=== PATIENT | male | born 1990 | race Two or more races ===

== ENCOUNTER 2024-05-12 17:49 | Emergency (ER) | payer MEDICAID, OTHER ==
[~2024-05-12] VITALS: Ht 167.6 cm; Wt 76.8 kg
[2024-05-12 18:01] VITALS: PULSE 70; RESP 20; O2SAT 98
[2024-05-12] MEDS ORDERED: AZIT-43 PO (22:54)
[2024-05-12] MEDS ORDERED: PRED20TA2 PO (22:54)
[2024-05-12 22:59] VITALS: BP 108/66
== END 2024-05-12 22:59 | disposition home or self-care (01) ==
LOC: ER 17:49
DX: J20.9 Acute bronchitis, unspecified (principal); J45.909 Unspecified asthma, uncomplicated; F12.10 Cannabis abuse, uncomplicated
CPT/HCPCS: 71046

== ENCOUNTER 2024-11-22 17:58 | Emergency (ER) | payer OTHER ==
[~2024-11-22] VITALS: Ht 165.1 cm; Wt 77.1 kg
[~2024-11-22 17:58] MED LIST: AZIT-43 PO; PRED20TA2 PO
[2024-11-22 18:38] VITALS: BP 146/86; PULSE 62; RESP 18; TEMP 98; O2SAT 99
[2024-11-22] MEDS: DexAMETHasone SOD PHOS 10MG/1ML VIAL INJ IM ONE (18:57)
[2024-11-22] MEDS: KETOROLAC TROMETH 60MG/2ML VIAL IM ONE (18:57)
--- NOTE | 2024-11-22 19:10 | ED.PDOC ---
Back pain HPI HPI Comments THIS IS A 34-YEAR-OLD MALE CHIEF COMPLAINT MID TO LOW BACK PAIN SHOOTING INTO HIS BILATERAL LOWER ABDOMIN AND PELVIS. PAIN 10/10 ON PAIN SCALE. STATES THAT HIS SHARP AND SHOOTING WORSE WITH BENDING FORWARD AND AND HYPEREXTENDED HIS BACK AND STATES 5 DAYS AGO HE WAS PROXIMALLY ON THE 2ND FLOOR AROUND 12 FT HIGH HE WAS ATTEMPTING TO GRAB A BALL THAT LANDED ON ROOF HE FELL ON HIS FEET THEN ON HIS FACE. LOC, NECK PAIN, HEAD TRAUMA, HEADACHE, VOMITING, DIARRHEA, OR FEVERS. Chief Complaint: Fall Injury Time Seen by MD: 18:17 Primary Care Provider: COUGH Reviewed Notes: Nurses Notes, Medications, Allergies Allergies: Coded Allergies: No Known Drug Allergy (Verified Allergy, Unknown, 05/12/24) Home Meds Active Scripts Hydrocodone-Acetaminophen (Hydrocodone Bitartrate/AC 5-325 mg) 1 Tab Tab, 1 TAB PO TID PRN, #20 TAB Prov:DANIEL MARTINEZ 11/22/24 Prednisone (Prednisone) 20 Mg Tab, 20 MG PO BID for 5 Days, #10 TAB 0 Refills Prov:AMBER MANDUJANO 05/12/24 Azithromycin (Azithromycin) 250 Mg Tab, 250 MG PO DAILY MDD 500 for 5 Days, #6 TAB 0 Refills 2 TABLETS ORALLY ON DAY ONE, THEN 1 TABLET ORALLY DAILY FOR 4 DAYS Prov:AMBER MANDUJANO 05/12/24 Information Source: Patient Mode of Arrival: Ambulatory Past Medical History PAST MEDICAL HISTORY: Asthma Family History Family History: Unknown Social History Smoker: Non-Smoker Alcohol: Denies ETOH Use Drugs: Marijuana Lives In: Home Constitutional: denies: chills, diaphoresis, fatigue, fever, malaise, sweats, weakness, others EENTM: denies: blurred vision, double vision, ear bleeding, ear discharge, ear drainage, ear pain, ear ringing, eye pain, eye redness, hearing loss, mouth pain, mouth swelling, nasal discharge, nose bleeding, nose congestion, nose pain, photophobia, tearing, throat pain, throat swelling, voice changes, others Respiratory: denies: cough, hemoptysis, orthopnea, SOB at rest, shortness of breath, SOB with excertion, stridor, wheezing, others Cardiovascular: denies: chest pain, dizzy spells, diaphoresis, Dyspnea on exer tion, edema, irregular heart beat, left arm pain, lightheadedness, palpitations, PND, syncope, others Gastrointestinal: reports: abdominal pain; denies: abdomen distended, blood streaked bowels, constipated, diarrhea, dysphagia, difficulty swallowing, hematemesis, melena, nausea, poor appetite, poor fluid intake, rectal bleeding, rectal pain, vomiting, others Genitourinary: denies: burning, dysuria, flank pain, frequency, hematuria, incontinence, penile discharge, penile sore, pain, testicle pain, testicle swelling, urgency, others Neurological: denies: dizziness, fainting, headache, left sided numbness, left sided weakness, numbness, paresthesia, pre-existing deficit, right sided numbness, right sided weakness, seizure, speech problems, tingling, tremors, weakness, others Musculoskeletal: reports: back pain; denies: gout, joint pain, joint swelling, muscle pain, muscle stiffness, neck pain, others Integumetry: denies: bruises, change in color, change in hair/nails, dryness, laceration, lesions, lumps, rash, wounds, others Allergic/Immunocompromised: denies: Difficulty Healing, Frequent Infections, Hives, Itching, others Hematologic/Lymphatic: denies: anemia, blood clots, easy bleeding, easy b ruising, swollen glands, others Endocrine: denies: excessive hunger, excessive sweating, excessive thirst, excessive urination, flushing, intolerance to cold, intolerance to heat, unexplained weight gain, unexplained weight loss, others Psychiatric: denies: anxiety, bipolar disorder, depression, hopeless, panic disorder, schizophrenia, sleepless, suicidal, others Physical Exam General Appearance: No Apparent Distress, Normal HEENT: Normal ENT Inspection, Pharynx Normal, TMs Normal Neck: Full Range of Motion, Non-Tender Respiratory: Chest Non-Tender, Lungs Clear, No Respiratory Distress, Normal Breath Sounds Cardiovascular: No Edema, No JVD, No Murmur, No Gallop, Normal Peripheral Pulses, Regular Rate/Rhythm Breast Exam: Deferred Gastrointestinal: No Organomegaly, No Pulsatile Mass, Normal Bowel Sounds, Soft, Tenderness (BILATERAL LOWER QUADRANTS) Genitalia: Deferred Pelvic: Deferred Rectal: Deferred Extremities: Normal capillary refill, Normal inspection, Normal range of motion, Non-tender, No pedal edema Musculoskeletal : Location: Bilateral Extremity Location: Back (MODERATE TENDERNESS OVER T10 THROUGH L5 NO NOTED CREPITUS OR STEP-OFFS NEGATIVE STRAIGHT LEG RAISE NO NOTED LACERATIONS ABRASIONS OR BRUISING STRENGTH SENSORY MOTION INTACT POSITIVE PEDAL PULSES) Apperance: Normal Neurologic: Alert, pharm tech II-XII nml as Tested, No Motor Deficits, Normal Affect, Normal Mood, No Sensory Deficits Cerebellar Function: Normal Reflexes: Normal Skin: Dry, Normal Color, Warm Lymphatic: No Adenopathy Was a procedure done? Was a procedure done?: No Back Pain Differential Dx Differential Diagnosis: Bowel Obstruction, Fracture, Musculoskeletal Pain X-Ray, Labs, Meds, VS Vital Signs Date Time Temp Pulse Resp B/P (MAP) Pulse Ox O2 Delivery O2 Flow Rate FiO2 11/22/24 18:38 98.0 62 18 146/86 (106) 99 98.0 11/22/24 18:38 62 18 99 Room Air 11/22/24 18:25 98.0 62 18 146/86 (106) 99 Current Medications Medications (Trade) Dose Ordered Sig/Brenna Route Start Time Stop Time Status Last Admin Ketorolac Tromethamine (Toradol Injection) 60 mg ONCE ONCE IM 11/22/24 18:45 11/22/24 18:46 DC 11/22/24 18:57 Dexamethasone Sodium Phosphate (Decadron Injection) 10 mg ONCE ONCE IM 11/22/24 18:45 11/22/24 18:46 DC 11/22/24 18:57 X-Ray, Labs, Meds, VS Comment CT ABDOMEN PELVIS NEGATIVE FOR ACUTE FINDINGS. LUMBAR SPINE X-RAY SHOWS MILD T12 WEDGE COMPRESSION FRACTURE INDETERMINATE AGE. HOWEVER ON EXAM PATIENT REPORTS SEVERE PAIN ON PALPATING SPINE AT T12. LIKELY OCCURRED DURING HIS FALL LIKELY ACUTE. ADVISED PATIENT TO CALL HIS PCP ON SATURDAY SCHEDULE AN APPOINTMENT CONSIDER REFERRAL TO PAIN MANAGEMENT SCRIPT HYDROCODONE PATIENT WAS GIVEN TORADOL 60 MG IM AND HE DOES NOTE SOME IMPROVEMENT IN HIS PAIN WENT DOWN TO 6/10 ON PAIN SCALE. ADVISED PATIENT TO RETURN TO THE ER FOR WEAKNESS, NUMBNESS, LOSS OF BOWEL OR BLADDER CONTROL, OR SADDLE ANESTHESIA OR INCREASING PAIN. AGREES WITH DISCHARGE PLAN OF CARE. Time of 1ST Reevaluation: 20:05 Reevaluation 1ST: Improved Patient Education/Counseling: Diagnosis, Treatment, Prognosis, Need For Follow Up Family Education/Counseling: Diagnosis, Treatment, Prognosis, Need For Follow Up Departure 1 Departure Time of Disposition: 20:09 Impression: Primary Impression: Compression fracture of T12 vertebra Qualified Codes: S22.080A - Wedge compression fracture of T11-T12 vertebra, initial encounter for closed fracture Disposition: HOME / SELF CARE / HOMELESS Condition: Stable e-Prescriptions Hydrocodone-Acetaminophen (Hydrocodone Bitartrate/AC 5-325 mg) 1 Tab Tab 1 TAB PO TID PRN, #20 TAB Prov: DANIEL MARTINEZ 11/22/24 Discharged With: Self Critical Care Note Critical Care Time?: No Stability Stability form required: RUI Cruz Nov 22, 2024 19:10
--- NOTE | 2024-11-22 19:48 | DVH ---
Exam: CT CT AB PEL WO CON-NO ORAL OR IV History: FALL 12 FEET Comparison Study: None available at time of dictation. TECHNIQUE: Multidetector CT of the abdomen was performed from lung bases to pubic symphysis. Imaging was performed without IV contrast. Axial, coronal and sagittal multiplanar reformats were obtained fr om the axial data set by the technologist. Radiation Dose Information: CT Dose: CTDI volume is 6.09 mGy. Dose-length product is 322.78 mGy*cm FINDINGS: Evaluation of solid organs is limited due to lack of intravenous contrast use. Findings: Lung Bases: No acute or significant lung base finding. Normal heart size. No pleural or pericardial effusion. Liver: The liver is normal in size. No focal lesions. Gallbladder and Biliary Tree: Unremarkable Spleen: Unremarkable Pancreas: The pancreas is grossly normal in appearance. Adrenal Glands: Unremarkable Kidneys: Kidneys are grossly normal without calculi or hydronephrosis. Bladder: Grossly unremarkable for degree of distention. Bowel: The stomach is grossly normal in appearance. Small bowel and colon are normal in caliber and d istribution. The appendix is not visualized; however, no secondary findings of acute appendicitis id entified. Ascites: Absent Lymphadenopathy: No mesenteric, retroperitoneal or periportal lymphadenopathy. Abdominal Wall and Mesentery: Unremarkable. Vasculature: The visualized abdominal aorta is normal in size and caliber. Evaluation of abdominal a nd pelvic vessels is limited due to lack of intravenous contrast. Pelvic Organs: Unremarkable Musculoskeletal: No aggressive focal bony lesions, acute fractures or dislocation. Soft tissues: Unremarkable IMPRESSION: 1. No free air or free fluid. 2. Solid organ injury is limited by a lack of IV contrast. Radiation optimization: All CT scans at this facility use at least one of these dose optimization raghu hniques: automated exposure control mA and/or kV adjustment per patient size (includes targeted exam s where dose is matched to clinical indication) or iterative reconstruction. HS:Y
--- NOTE | 2024-11-22 19:52 | DVH ---
EXAM: CT LS SPINE WO CONTRAST INDICATION: radiculopathy EXAM DATE: 11/22/2024 07:23 PM COMPARISON: None TECHNIQUE: Multiple axial CT images of the lumbar spine were obtained using bone algorithm. Axial and coronal reformatting was done. Bone and soft tissue windows were reviewed. Radiation Dose Information: CT Dose: CTDI volume is 14.33 mGy. Dose-length product is 493.44 mGy*cm Findings: There are 5 nonrib-bearing lumbar vertebrae. There is no evidence of spondylolisthesis. Age indeterminate mild wedge shaped compression fracture of T12. No evidence of degenerative disc disease. No neuroforaminal narrowing. No spinal canal stenosis. The alignment is within normal limits. The paraspinal soft tissues appear within normal limits. The v isualized portions of the abdomen are unremarkable. T12-L1: Normal L1-L2: Normal L2-L3: Normal L3-L4: Normal L4-L5: Normal L5-S1: Normal Impression: 1. Age indeterminate mild wedge shaped compression fracture of T12.
[2024-11-22] MEDS ORDERED: HYDR-4902 PO (20:21)
== END 2024-11-22 20:50 | disposition left against medical advice (07) ==
LOC: ER 17:58
DX: S22.088A Other fracture of T11-T12 vertebra, initial encounter for closed fracture (principal); J45.909 Unspecified asthma, uncomplicated; F12.90 Cannabis use, unspecified, uncomplicated; Z79.52 Long term (current) use of systemic steroids; Z79.899 Other long term (current) drug therapy; W17.89XA Other fall from one level to another, initial encounter; Y93.89 Activity, other specified; Y92.89 Other specified places as the place of occurrence of the external cause; Y99.8 Other external cause status
CPT/HCPCS: 72131; 74176; 96372; 99285; J1100; J1885

== ENCOUNTER 2025-03-26 11:52 | Emergency (ER) | payer OTHER ==
[~2025-03-26 11:52] MED LIST changes: +HYDR-4902 PO
--- NOTE | 2025-03-26 13:05 | ED.PDOC ---
SOB-HPI HPI Comments A 34 YEAR OLD MALE PRESENTS TO THE ED WITH CHIEF COMPLAINT OF FLU-LIKE ILLNESS. PATIENT REPORTS THAT HE HAS BEEN EXPERIENCING A COUGH WITH ASSOCIATED SORE THROAT, NASAL CONGESTION, AND SUBSTERNAL CHEST PAIN AFTER COUGHING FOR THE PAST 2 WEEKS. PATIENT DENIES ANY FEVER, CHILLS, SOB, DIZZINESS, HEADACHE, OR N/V. NO OTHER SYMPTOMS REPORTED AT THIS TIME OF CARE. Chief Complaint: Flu like Time Seen by MD: 13:03 Primary Care Provider: COUGH Reviewed notes: Nurses Notes, Medications, Allergies Information Source: Patient Mode of Arrival: Ambulatory Severity: Moderate Timing: Weeks Duration: Since onset Context: At Rest History of: None Prehospital treatment: None Modifying Factors: Nothing Associated Signs and Symptoms: Cough, Nasal Congestion, Sore Throat, Chest Pain Quality: Aching Radiation: No Radiation Location: Substernal If cough with SOB: Productive Past Medical History PAST MEDICAL HISTORY: Asthma Surgical History: Denies all surgeries Family History Family History: Reviewed,noncontributory to illness, Unknown Social History Smoker: Cigarettes Alcohol: Denies ETOH Use Drugs: Marijuana Lives In: Home Constitutional: denies: chills, diaphoresis, fatigue, fever, malaise, sweats, weakness, others EENTM: reports: nose congestion, throat pain; denies: blurred vision, double vision, ear bleeding, ear discharge, ear drainage, ear pain, ear ringing, eye pain, eye redness, hearing loss, mouth pain, mouth swelling, nasal discharge, nose bleeding, nose pain, photophobia, tearing, throat swelling, voice changes, others Respiratory: reports: cough; denies: hemoptysis, orthopnea, SOB at rest, shortness of breath, SOB with excertion, stridor, wheezing, others Cardiovascular: denies: chest pain, dizzy spells, diaphoresis, Dyspnea on exertion, edema, irregular heart beat, left arm pain, lightheadedness, palpitations, PND, syncope, others Gastrointestinal: denies: abdomen distended, abdominal pain, blood streaked bowels, constipated, diarrhea, dysphagia, difficulty swallowing, hematemesis, melena, nausea, poor appetite, poor fluid intake, rectal bleeding, rectal pain, vomiting, others Genitourinary: denies: burning, dysuria, flank pain, frequency, hematuria, incontinence, penile discharge, penile sore, pain, testicle pain, testicle swelling, urgency, others Neurological: denies: dizziness, fainting, headache, left sided numbness, left sided weakness, numbness, paresthesia, pre-existing deficit, right sided numbness, right sided weakness, seizure, speech problems, tingling, tremors, weakness, others Musculoskeletal: denies: back pain, gout, joint pain, joint swelling, muscle pain, muscle stiffness, neck pain, others Integumetry: denies: bruises, change in color, change in hair/nails, dryness, laceration, lesions, lumps, rash, wounds, others Allergic/Immunocompromised: denies: Difficulty Healing, Frequent Infections, Hives, Itching, others Hematologic/Lymphatic: denies: anemia, blood clots, easy bleeding, easy bruising, swollen glands, others Endocrine: denies: excessive hunger, excessive sweating, excessive thirst, excessive urination, flushing, intolerance to cold, intolerance to heat, unexplained weight gain, unexplained weight loss, others Psychiatric: denies: anxiety, bipolar disorder, depression, hopeless, panic disorder, schizophrenia, sleepless, suicidal, others All Other Systems: Reviewed and Negative Physical Exam General Appearance: No Apparent Distress, Normal HEENT: Normal ENT Inspection, PERRL/EOMI, Pharyngeal Erythema (VESICLE PHARYNX, NO EXUDATES. ), TMs Normal Neck: Full Range of Motion, Non-Tender, Normal, Normal Inspection Respiratory: Chest Non-Tender, Expiration, No Accessory Muscle Use, No Respiratory Distress, Rhonchi Cardiovascular: No Edema, No JVD, No Murmur, No Gallop, Normal Peripheral Pulses, Regular Rate/Rhythm Breast Exam: Deferred Gastrointestinal: No Organomegaly, Non Tender, No Pulsatile Mass, Normal Bowel Sounds, Soft Genitalia: Deferred Pelvic: Deferred Rectal: Deferred Extremities: No calf tenderness, Normal capillary refill, Normal inspection, Normal range of motion, Non-tender, No pedal edema Musculoskeletal : Apperance: Normal Neurologic: Alert, ecological risk assessor II-XII nml as Tested, No Motor Deficits, Normal Affect, Normal Mood, No Sensory Deficits Cerebellar Function: Normal Reflexes: Normal Skin: Dry, Normal Color, Warm Peripheral Pulses: 2+ carotid (R), 2+ carotid (L) Lymphatic: No Adenopathy Was a procedure done? Was a procedure done?: No Differential Dx Differential Diagnosis: Asthma, Bronchitis, Pneumonia, Sinusitis, Allergic Rhinitis, Pharyngitis, URI X-Ray, Labs, Meds, VS Comment EXTERNAL MEDICAL RECORDS REVIEWED: [NONE] INDEPENDENT HISTORIANS: [NONE] SOCIAL DETERMINANTS OF HEALTH: [NONE] LABS ORDERED: NONE REVIEWED AND INTERPRETED RESULTS: CHEST XR INTERPRETED BY ME. NO ACUTE FINDINGS. NO PNEUMONIA. NO CONSOLIDATIONS. NO INFILTRATES. PENDING RADIOLOGIST REPORT. IMAGING ORDERED: CHEST XR TREATMENTS ORDERED: NONE PROCEDURES PERFORMED: NONE CRITICAL CARE TIME: NONE I HAVE DISCUSSED THE PATIENT WITH THE ATTENDING PHYSICIAN DR. JACKSON AND HE AGREES WITH THE PATIENT'S PLAN OF CARE AND DISPOSITION. BASED ON HISTORY OF PRESENT ILLNESS, AND PHYSICAL EXAM, PATIENT WILL BE DISCHARGED HOME. DISCUSSED PLAN FOR DISCHARGE HOME WITH RX . MEDICATION WARNINGS GIVEN. SHARED DECISION MAKING: DISCUSSED WITH PATIENT THAT THEIR WORKUP WAS NORMAL. PATIENT INSTRUCTED TO FOLLOW UP WITH PRIMARY CARE PROVIDER IN 1-2 DAYS FOR RE- EVALUATION OF SYMPTOMS. PATIENT VERBALIZES UNDERSTANDING TO RETURN TO ED FOR NEW OR WORSENING SYMPTOMS OR IF FOLLOW UP WITH PCP CANNOT BE OBTAINED. PATIENT FEELS COMFORTABLE GOING HOME AT THIS TIME. ALL QUESTIONS ADDRESSED AT TIME OF DISCHARGE. Images Reviewed?: Images reviewed and evaluated by me Time of 1ST Reevaluation: 13:10 Reevaluation 1ST: Improved Patient Education/Counseling: Diagnosis, Treatment, Need For Follow Up Family Education/Counseling: Diagnosis, Treatment, No Family Present Medical Screening: No EMC Exist At This Time Departure 1 Departure Time of Disposition: 13:12 Impression: Primary Impression: Acute bronchitis Qualified Codes: J20.9 - Acute bronchitis, unspecified Additional Impression: Acute pharyngitis Qualified Codes: J02.9 - Acute pharyngitis, unspecified Disposition: HOME / SELF CARE / HOMELESS Condition: Stable Additional Instructions: FOLLOW-UP WITH PCP IN 1 TO 2 DAYS. TAKE MEDICATIONS PRESCRIBED. RETURN TO ED FOR ANY NEW OR WORSENING SYMPTOMS. e-Prescriptions Promethazine-Dm (Promethazine Dm 6.25-15 mg/5Ml) 1 Maureen Maureen 5 ML PO TID, #180 ML Prov: OMAIRA WAHL 03/26/25 Azithromycin (Azithromycin) 500 Mg Tab 1 TAB PO DAILY, #5 TAB Prov: OMAIRA WAHL 03/26/25 Discharged With: Self Critical Care Note Critical Care Time?: No Stability Stability form required: No Heart Score Heart Score: Heart Score Response (Comments) Value History N/A 0 EKG N/A 0 Age N/A 0 Risk Factors N/A 0 Troponin N/A 0 Total 0 I personally scribed for OMAIRA WAHL ([email or web address]) on 03/26/25 at 13:04. Electronically submitted by Rafal Lemus ([email or web address]). I personally scribed for OMAIRA WAHL ([email or web address]) on 03/26/25 at 13:13. Electronically submitted by Rafal Lemus ([email or web address]). I personally scribed for OMAIRA WAHL ([email or web address]) on 03/26/25 at 13:14. Electronically submitted by Rafal Lemus ([email or web address]). OMAIRA WAHL March 26, 2025 13:04
[2025-03-26] MEDS ORDERED: AZIT500T66 PO (13:17)
[2025-03-26] MEDS ORDERED: PROM1SOL4 PO (13:17)
--- NOTE | 2025-03-26 13:21 | DVH ---
XY CHEST TWO VIEWS ROUTINE INDICATION: COUGH X 2 WEEKS TECHNIQUE: Two views of the chest COMPARISON: XY CHEST TWO VIEWS ROUTINE on DOS: 05/12/24 FINDINGS/IMPRESSION: LUNGS: No pleural effusion, consolidation, or pneumothorax. Peribronchial cuffing, which may be infec tious versus inflammatory bronchitis. MEDIASTINUM: Unremarkable BONES: No acute osseous abnormality OTHER: None
== END 2025-03-26 13:27 | disposition home or self-care (01) ==
LOC: ER 11:52
DX: J20.9 Acute bronchitis, unspecified (principal); J45.909 Unspecified asthma, uncomplicated; F17.210 Nicotine dependence, cigarettes, uncomplicated
CPT/HCPCS: 71046

== ENCOUNTER 2025-05-27 17:44 | Emergency (ER) | payer OTHER ==
[~2025-05-27] VITALS: Ht 165.1 cm; Wt 73.9 kg
[~2025-05-27 17:44] MED LIST changes: +AZIT500T66 PO; +PROM1SOL4 PO
[2025-05-27] MEDS ORDERED: AMOX875T4 PO (18:26)
--- NOTE | 2025-05-27 18:27 | ED.PDOC ---
Eye-HPI HPI Comments 34 year old male presents to ER with complaints of sore throat x 2 weeks. Patient states he's been experiencing 4/10 sore throat pain x 2 weeks. Denies use of medications for current symptoms and presents to ER ambulatory on arrival, in no distress and states his sore throat pain "causes" him to have an intermittent dry cough. Denies fever, body aches, chills, headache, difficulty swallowing or any further symptoms/complaints Time Seen by MD: 18:15 Primary Care Provider: COUGH Reviewed Notes: Nurses Notes, Medications, Allergies Allergies: Coded Allergies: No Known Drug Allergy (Verified Allergy, Unknown, 05/12/24) Home Meds Active Scripts Amoxicillin & Pot Clavulanate (Amoxicillin/Potassium Cla) 875 Mg Tab, 1 TAB PO BID for 7 Days, #14 TAB 0 Refills Prov:AMBER MANDUJANO 05/27/25 Promethazine-Dm (Promethazine Dm 6.25-15 mg/5Ml) 1 Maureen Maureen, 5 ML PO TID, #180 ML Prov:OMAIRA WAHL 03/26/25 Azithromycin (Azithromycin) 500 Mg Tab, 1 TAB PO DAILY, #5 TAB Prov:OMAIRA WAHL 03/26/25 Hydrocodone-Acetaminophen (Hydrocodone Bitartrate/AC 5-325 mg) 1 Tab Tab, 1 TAB PO TID PRN, #20 TAB Prov:DANIEL MARTINEZ 11/22/24 Prednisone (Prednisone) 20 Mg Tab, 20 MG PO BID for 5 Days, #10 TAB 0 Refills Prov:AMBER MANDUJANO 05/12/24 Azithromycin (Azithromycin) 250 Mg Tab, 250 MG PO DAILY MDD 500 for 5 Days, #6 TAB 0 Refills 2 TABLETS ORALLY ON DAY ONE, THEN 1 TABLET ORALLY DAILY FOR 4 DAYS Prov:AMBER MANDUJANO 05/12/24 Information Source: Patient Past Medical History PAST MEDICAL HISTORY: Asthma Surgical History: Denies all surgeries Family History Family History: Unknown Social History Smoker: Cigarettes, Less Than 1 Pack/Day Alcohol: Denies ETOH Use Drugs: Marijuana Lives In: Home Constitutional: denies: chills, diaphoresis, fatigue, fever, malaise, sweats, weakness, others EENTM: reports: others (As in HPI) Respiratory: reports: others (As in HPI) Cardiovascular: denies: chest pain, dizzy spells, diaphoresis, Dyspnea on exertion, edema, irregular heart beat, left arm pain, lightheadedness, palpitations, PND, syncope, others Gastrointestinal: denies: abdomen distended, abdominal pain, blood streaked bowels, constipated, diarrhea, dysphagia, difficulty swallowing, hematemesis, melena, nausea, poor appetite, poor fluid intake, rectal bleeding, rectal pain, vomiting, others Genitourinary: denies: burning, dysuria, flank pain, frequency, hematuria, incontinence, penile discharge, penile sore, pain, testicle pain, testicle swelling, urgency, others Neurological: denies: dizziness, fainting, headache, left sided numbness, left sided weakness, numbness, paresthesia, pre-existing deficit, right sided nu mbness, right sided weakness, seizure, speech problems, tingling, tremors, weakness, others Musculoskeletal: denies: back pain, gout, joint pain, joint swelling, muscle pain, muscle stiffness, neck pain, others Integumetry: denies: bruises, change in color, change in hair/nails, dryness, laceration, lesions, lumps, rash, wounds, others Allergic/Immunocompromised: denies: Difficulty Healing, Frequent Infections, Hives, Itching, others Hematologic/Lymphatic: denies: anemia, blood clots, easy bleeding, easy bruising, swollen glands, others Endocrine: denies: excessive hunger, excessive sweating, excessive thirst, excessive urination, flushing, intolerance to cold, intolerance to heat, unexplained weight gain, unexplained weight loss, others Psychiatric: denies: anxiety, bipolar disorder, depression, hopeless, panic disorder, schizophrenia, sleepless, suicidal, others Physical Exam General Appearance: No Apparent Distress HEENT: Pharyngeal Erythema (Mild tonsillar swelling/erythema noted bilaterally without exudates. Uvula-normal), TMs Normal Neck: Full Range of Motion, Non-Tender, Normal Respiratory: Chest Non-Tender, Lungs Clear, No Accessory Muscle Use, No R espiratory Distress, Normal Breath Sounds Cardiovascular: No Murmur, No Gallop, Regular Rate/Rhythm Breast Exam: Deferred Gastrointestinal: NOT DONE Genitalia: Deferred Pelvic: Deferred Rectal: Deferred Extremities: Normal capillary refill, Normal range of motion Neurologic: Alert, No Motor Deficits, Normal Affect, Normal Mood, No Sensory Deficits Cerebellar Function: Normal Reflexes: Normal Skin: Dry, Normal Color, Warm Lymphatic: No Adenopathy Was a procedure done? Was a procedure done?: No Sedation Sedation?: No EENT DIFF Eye: N/A Sore Throat: Epiglottitis, Mononeucleosis, Peritonsillar Abscess X-Ray, Labs, Meds, VS Vital Signs Date Time Temp Pulse Resp B/P (MAP) Pulse Ox O2 Delivery O2 Flow Rate FiO2 05/27/25 18:36 98.4 69 18 142/89 (106) 97 98.4 Smoking/Cannabis cessation discussed and advised Advised to drink plenty of fluids Advised to follow up with PCP in 1-2 days Patient verbalized understanding and agreeable with current plan of care Advised to return to ER immediately if symptoms worsen Time of 1ST Reevaluation: 18:02 Reevaluation 1ST: N/A Patient Education/Counseling: Diagnosis, Treatment, Prognosis, Need For Follow Up Family Education/Counseling: No Family Present SEPSIS Sepsis Screen Vital Signs Date Time Temp Pulse Resp B/P (MAP) Pulse Ox O2 Delivery O2 Flow Rate FiO2 05/27/25 18:36 98.4 69 18 142/89 (106) 97 98.4 Departure 1 Departure Time of Disposition: 18:22 Impression: Primary Impression: Acute tonsillitis Qualified Codes: J03.90 - Acute tonsillitis, unspecified Disposition: 01 HOME / SELF CARE / HOMELESS Condition: Stable e-Prescriptions Amoxicillin & Pot Clavulanate (Amoxicillin/Potassium Cla) 875 Mg Tab 1 TAB PO BID for 7 Days, #14 TAB 0 Refills Prov: AMBER MANDUJANO 05/27/25 Discharged With: Self Critical Care Note Critical Care Time?: No Stability Stability form required: No Heart Score Heart Score: Heart Score Response (Comments) Value History N/A 0 EKG N/A 0 Age N/A 0 Risk Factors N/A 0 Troponin N/A 0 Total 0 AMBER MANDUJANO May 27, 2025 18:26
[2025-05-27 18:36] VITALS: BP 142/89; PULSE 69; RESP 18; TEMP 98.4; O2SAT 97
== END 2025-05-27 21:44 | disposition home or self-care (01) ==
LOC: ER 17:44
DX: J03.90 Acute tonsillitis, unspecified (principal); J45.909 Unspecified asthma, uncomplicated; F17.210 Nicotine dependence, cigarettes, uncomplicated; Z79.899 Other long term (current) drug therapy

== ENCOUNTER 2025-06-08 20:17 | Emergency (ER) | payer OTHER ==
[~2025-06-08] VITALS: Ht 165.1 cm; Wt 72.0 kg
[2025-06-08 20:17] VITALS: TEMP 98.2
[~2025-06-08 20:17] MED LIST changes: +AMOX875T4 PO
[2025-06-08] MEDS: ACETAMINOPHEN 325 MG TAB PO ONE (21:09)
--- NOTE | 2025-06-08 21:10 | DVH ---
CHEST RADIOGRAPH Indication: chest wall pain Technique: Frontal and lateral view of the chest was obtained Comparison: XY CHEST TWO VIEWS ROUTINE on DOS: 03/26/25, XY CHEST TWO VIEWS ROUTINE on DOS: 05/12/24 FINDINGS: Lines and Tubes: None Lungs: Clear Pleura: No effusion. No pneumothorax. Cardiomediastinal contours: Unremarkable Bones: Unremarkable IMPRESSION: 1. No evidence of acute disease.
[2025-06-08] MEDS ORDERED: IBUP-1456 PO (22:22)
--- NOTE | 2025-06-08 22:22 | ED.PDOC ---
HPI Comments 34-year-old male presents to ER with complaints of chest wall pain x1 day. Patient reports he started experiencing 05/27 substernal chest wall pain at 7:20 p.m. prior to arrival to ER s/p a barbell hitting his chest while he was bench pressing with 175 lbs. He states his pain is present only with movement/palpation, denying any chest pain at rest. Denies use of medications for current symptoms and presents to ER ambulatory on arrival, with steady gait, in no distress with slight TTP to substernal region of chest wall noted. Denies shortness of breath, nausea/vomiting, skin changes, abdominal pain or any further symptoms/complaints Chief Complaint: Chest Wall Injury Time Seen by MD: 20:29 Primary Care Provider: HAO Richter Notes: Nurses Notes, Medications, Allergies Allergies: Coded Allergies: No Known Drug Allergy (Verified Allergy, Unknown, 05/12/24) Home Meds Active Scripts Ibuprofen (Ibuprofen) 800 Mg Tab, 1 TAB PO TID PRN, #30 TAB 0 Refills Prov:AMBER MANDUJANO 06/08/25 Amoxicillin & Pot Clavulanate (Amoxicillin/Potassium Cla) 875 Mg Tab, 1 TAB PO BID for 7 Days, #14 TAB 0 Refills Prov:AMBER MANDUJANO 05/27/25 Promethazine-Dm (Promethazine Dm 6.25-15 mg/5Ml) 1 Maureen Maureen, 5 ML PO TID, #180 ML Prov:OMAIRA WAHL 03/26/25 Azithromycin (Azithromycin) 500 Mg Tab, 1 TAB PO DAILY, #5 TAB Prov:OMAIRA WAHL 03/26/25 Hydrocodone-Acetaminophen (Hydrocodone Bitartrate/AC 5-325 mg) 1 Tab Tab, 1 TAB PO TID PRN, #20 TAB Prov:DANIEL MARTINEZ 11/22/24 Prednisone (Prednisone) 20 Mg Tab, 20 MG PO BID for 5 Days, #10 TAB 0 Refills Prov:AMBER MANDUJANO 05/12/24 Azithromycin (Azithromycin) 250 Mg Tab, 250 MG PO DAILY MDD 500 for 5 Days, #6 TAB 0 Refills 2 TABLETS ORALLY ON DAY ONE, THEN 1 TABLET ORALLY DAILY FOR 4 DAYS Prov:AMBER MANDUJANO 05/12/24 Information Source: Patient Mode of Arrival: Ambulatory Past Medical History PAST MEDICAL HISTORY: Asthma Past Medical History (Other): "Several rib fractures"- January 2025 Surgical History: Denies all surgeries Family History Family History: Unknown Social History Smoker: Cigarettes, Less Than 1 Pack/Day Alcohol: Denies ETOH Use Drugs: Marijuana Lives In: Home Constitutional: denies: chills, diaphoresis, fatigue, fever, malaise, sweats, weakness, others EENTM: denies: blurred vision, double vision, ear bleeding, ear discharge, ear drainage, ear pain, ear ringing, eye pain, eye redness, hearing loss, mouth pain, mouth swelling, nasal discharge, nose bleeding, nose congestion, nose pain, photophobia, tearing, throat pain, throat swelling, voice changes, others Respiratory: denies: cough, hemoptysis, orthopnea, SOB at rest, shortness of breath, SOB with excertion, stridor, wheezing, others Cardiovascular: reports: others (As stated in HPI) Gastrointestinal: denies: abdomen distended, abdominal pain, blood streaked bowels, constipated, diarrhea, dysphagia, difficulty swallowing, hematemesis, melena, nausea, poor appetite, poor fluid intake, rectal bleeding, rectal pain, vomiting, others Genitourinary: denies: burning, dysuria, flank pain, frequency, hematuria, incontinence, penile discharge, penile sore, pain, testicle pain, testicle swelling, urgency, others Neurological: denies: dizziness, fainting, headache, left sided numbness, left sided weakness, numbness, paresthesia, pre-existing deficit, right sided numbness, right sided weakness, seizure, speech problems, tingling, tremors, weakness, others Musculoskeletal: denies: back pain, gout, joint pain, joint swelling, muscle pain, muscle stiffness, neck pain, others Integumetry: denies: bruises, change in color, change in hair/nails, dryness, laceration, lesions, lumps, rash, wounds, others Allergic/Immunocompromised: denies: Difficulty Healing, Frequent Infections, Hives, Itching, others Hematologic/Lymphatic: denies: anemia, blood clots, easy bleeding, easy bruising, swollen glands, others Endocrine: denies: excessive hunger, excessive sweating, excessive thirst, excessive urination, flushing, intolerance to cold, intolerance to heat, unexpl ained weight gain, unexplained weight loss, others Physical Exam General Appearance: No Apparent Distress HEENT: PERRL/EOMI Neck: Full Range of Motion, Non-Tender, Normal Respiratory: Lungs Clear, No Accessory Muscle Use, No Respiratory Distress, Normal Breath Sounds, Other (Slight TTP to substernal chest wall noted. No skin changes appreciated) Cardiovascular: No Murmur, No Gallop, Regular Rate/Rhythm Breast Exam: Deferred Gastrointestinal: Non Tender, No Pulsatile Mass, Soft Genitalia: Deferred Pelvic: Deferred Rectal: Deferred Extremities: Normal capillary refill, Normal range of motion Neurologic: Alert, No Motor Deficits, Normal Affect, Normal Mood, No Sensory Deficits Cerebellar Function: Normal Reflexes: Normal Skin: Dry, Normal Color, Warm Peripheral Pulses: 2+ carotid (R), 2+ carotid (L), 2+ Radial (R), 2+ Radial (L), 2+ Brachial (R), 2+ Brachial (L) Lymphatic: No Adenopathy EKG EKG : Pulse Rate (adult): 62 Cardiac Rhythm: NSR (SR) Hypertrophy: None Was a procedure done? Was a procedure done?: No Sedation Sedation?: No CP Differential Dx Differential Diagnosis: IA, Other (Pneumothorax, hemothorax, cardiac contusion, fracture) X-Ray, Labs, Meds, VS Vital Signs Date Time Temp Pulse Resp B/P (MAP) Pulse Ox O2 Delivery O2 Flow Rate FiO2 06/08/25 20:23 62 06/08/25 20:17 98.2 66 18 110/71 (84) 98 98.2 Lab Test 06/08/25 21:00 Range/Units Troponin I High Sensitivity 4 </=54 ng/L Current Medications Medications (Trade) Dose Ordered Sig/Brenna Route Start Time Stop Time Status Last Admin Acetaminophen (Tylenol Tablet) 650 mg ONCE ONCE PO 06/08/25 21:00 06/08/25 21:01 DC 06/08/25 21:09 PATIENT: LATISHA JACQUES: [id number]: [id number] : 1990 LOC: ER ROOM / BED: / AGE / SEX: 34 / M ADM STATUS: REG ER SERVICE 47 ORDERING PHYSICIAN: AMBER MANDUJANO PROCEDURE(s): CXR2 - CHEST TWO VIEWS ROUTINE REASON: chest wall pain ORDER NUMBER(s): [id number], ACCESSION NUMBER(s): [id number] CHEST RADIOGRAPH Indication: chest wall pain Technique: Frontal and lateral view of the chest was obtained Comparison: XY CHEST TWO VIEWS ROUTINE on DOS: 03/26/25, XY CHEST TWO VIEWS ROUTINE on DOS: 05/12/24 FINDINGS: Lines and Tubes: None Lungs: Clear Pleura: No effusion. No pneumothorax. Cardiomediastinal contours: Unremarkable Bones: Unremarkable IMPRESSION: 1. No evidence of acute disease. ATED BY: FAVIAN PEREZ MD DICTATED DATE/TIME: 06/08/252106 SIGNED BY: FAVIAN PEREZ MD SIGNED DATE/TIME: 06/08/252106 CC: Tylenol 650 mg p.o. ordered Ibuprofen 800 mg p.o. ordered Chest x-ray reviewed Troponin reviewed-normal EKG reviewed Smoking/cannabis cessation discussed and advised Patient had improvement in symptoms and reports that his pain is present with palpation/movement only, denying any pain at rest Advised to follow up with PCP in 1-2 days Patient verbalized understanding and agreeable with current plan of care Advised to return to ER immediately if symptoms worsen Images Reviewed?: Images reviewed and evaluated by me Time of 1ST Reevaluation: 22:29 Reevaluation 1ST: N/A Patient Education/Counseling: Diagnosis, Treatment, Prognosis, Need For Follow Up Family Education/Counseling: No Family Present SEPSIS Sepsis Screen Date sepsis recognized/suspect: Jun 08, 2025 Time Sepsis recognized/suspect: 2016 Recent Procedure: No On Antibiotic Therapy: No Respiratory Rate >20: No Heart Rate >90: No Temp<36 C (96.8 F) or >38.3 C: No SBP <90 or MAP <65 mmHG: No New Acute Mental Status Change: No Is the patient on CPAP, BIPAP,: No Physician Orders Chest Two Views Routine (06/08/25 20:48) Electrocardigram (06/08/25 20:48) Vital Signs Date Time Temp Pulse Resp B/P (MAP) Pulse Ox O2 Delivery O2 Flow Rate FiO2 06/08/25 20:23 62 06/08/25 20:17 98.2 66 18 110/71 (84) 98 98.2 Medications Medications Dose Ordered Sig/Brenna Route Start Time Stop Time Status Last Admin Dose Admin Acetaminophen 650 mg ONCE ONCE PO 06/08/25 21:00 06/08/25 21:01 DC 06/08/25 21:09 Departure 1 Departure Time of Disposition: 22:20 Impression: Primary Impression: Chest wall contusion Qualified Codes: S20.219A - Contusion of unspecified front wall of thorax, initial encounter Disposition: HOME / SELF CARE / HOMELESS Condition: Stable e-Prescriptions Ibuprofen (Ibuprofen) 800 Mg Tab 1 TAB PO TID PRN, #30 TAB 0 Refills Prov: AMBER MANDUJANO 06/08/25 Discharged With: Self Critical Care Note Critical Care Time?: No Stability Stability form required: No Heart Score Heart Score: Heart Score Response (Comments) Value History N/A 0 EKG N/A 0 Age N/A 0 Risk Factors N/A 0 Troponin N/A 0 Total 0 AMBER MANDUJANO Jun 08, 2025 22:22
[2025-06-08 22:25] VITALS: BP 115/70; RESP 18; O2SAT 99
[2025-06-08] MEDS: IBUPROFEN 800 MG TAB PO ONE (22:33)
[2025-06-08 22:36] VITALS: PULSE 62
--- NOTE | 2025-06-09 07:47 | ECG ---
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
== END 2025-06-08 22:35 | disposition home or self-care (01) ==
LOC: ER 20:17
DX: S20.219A Contusion of unspecified front wall of thorax, initial encounter (principal); J45.909 Unspecified asthma, uncomplicated; F17.210 Nicotine dependence, cigarettes, uncomplicated; Z79.899 Other long term (current) drug therapy; W22.8XXA Striking against or struck by other objects, initial encounter; Y93.89 Activity, other specified; Y92.89 Other specified places as the place of occurrence of the external cause; Y99.8 Other external cause status
CPT/HCPCS: 36415; 71046; 84484; 93005

== ENCOUNTER 2025-09-07 20:14 | Emergency (ER) | payer OTHER ==
[~2025-09-07] VITALS: Ht 165.1 cm; Wt 75.8 kg
[~2025-09-07 20:14] MED LIST changes: +IBUP-1456 PO
[2025-09-07 22:44] VITALS: BP 122/83; PULSE 78; RESP 18; TEMP 97.3; O2SAT 98
[2025-09-07] MEDS ORDERED: ACET500T58 PO (22:51)
[2025-09-07] MEDS ORDERED: DOXY100C79 PO (22:51)
--- NOTE | 2025-09-07 22:55 | ED.PDOC ---
General HPI Comments 34-year-old male presents to ER with urinary complaint x2 days. Patient reports that he started experiencing yellow penile discharge with associated burning with urination two days ago. States that he did have unprotected sexual intercourse with "multiple females" this past weekend. Patient presents to ER afebrile, ambulatory, with steady gait, in no distress and reports that he is following up with his PCP with regards to his symptoms tomorrow. Denies fever, body aches, chills, joint paint, n/v, abdominal/pelvic pain, skin changes, further changes in urination or any further symptoms/complaints Chief Complaint: Urinary Time Seen by MD: 20:37 Primary Care Provider: HAO Richter notes: Nurses Notes, Medications, Allergies Allergies: Coded Allergies: No Known Drug Allergy (Verified Allergy, Unknown, 05/12/24) Home Meds Active Scripts Doxycycline (Monohydrate) (Doxycycline) 100 Mg Cap, 100 MG PO BID for 7 Days, #14 CAP 0 Refills Prov:AMBER MANDUJANO 09/07/25 Acetaminophen (Acetaminophen) 500 Mg Tab, 500 MG PO Q4HPRN, #30 TAB 0 Refills Prov:AMBER MANDUJANO 09/07/25 Ibuprofen (Ibuprofen) 800 Mg Tab, 1 TAB PO TID PRN, #30 TAB 0 Refills Prov:AMBER MANDUJANO 06/08/25 Amoxicillin & Pot Clavulanate (Amoxicillin/Potassium Cla) 875 Mg Tab, 1 TAB PO BID for 7 Days, #14 TAB 0 Refills Prov:AMBER MANDUJANO 05/27/25 Promethazine-Dm (Promethazine Dm 6.25-15 mg/5Ml) 1 Maureen Maureen, 5 ML PO TID, #180 ML Prov:OMAIRA WAHL 03/26/25 Azithromycin (Azithromycin) 500 Mg Tab, 1 TAB PO DAILY, #5 TAB Prov:OMAIRA WAHL 03/26/25 Hydrocodone-Acetaminophen (Hydrocodone Bitartrate/AC 5-325 mg) 1 Tab Tab, 1 TAB PO TID PRN, #20 TAB Prov:DANIEL MARTINEZ 11/22/24 Prednisone (Prednisone) 20 Mg Tab, 20 MG PO BID for 5 Days, #10 TAB 0 Refills Prov:ABMER MANDUJANO 05/12/24 Azithromycin (Azithromycin) 250 Mg Tab, 250 MG PO DAILY MDD 500 for 5 Days, #6 TAB 0 Refills 2 TABLETS ORALLY ON DAY ONE, THEN 1 TABLET ORALLY DAILY FOR 4 DAYS Prov:AMBER MANDUJANO 05/12/24 Information Source: Patient Mode of Arrival: Ambulatory Past Medical History PAST MEDICAL HISTORY: Asthma Surgical History: Denies all surgeries Family History Family History: Unknown Social History Smoker: Cigarettes, Less Than 1 Pack/Day Alcohol: Denies ETOH Use Drugs: Marijuana Lives In: Home Constitutional: denies: chills, diaphoresis, fatigue, fever, malaise, sweats, weakness, others EENTM: denies: blurred vision, double vision, ear bleeding, ear discharge, ear drainage, ear pain, ear ringing, eye pain, eye redness, hearing loss, mouth pain, mouth swelling, nasal discharge, nose bleeding, nose congestion, nose pain, photophobia, tearing, throat pain, throat swelling, voice changes, others Respiratory: denies: cough, hemoptysis, orthopnea, SOB at rest, shortness of breath, SOB with excertion, stridor, wheezing, others Cardiovascular: denies: chest pain, dizzy spells, diaphoresis, Dyspnea on exertion, edema, irregular heart beat, left arm pain, lightheadedness, palpitations, PND, syncope, others Gastrointestinal: denies: abdomen distended, abdominal pain, blood streaked bowels, constipated, diarrhea, dysphagia, difficulty swallowing, hematemesis, melena, nausea, poor appetite, poor fluid intake, rectal bleeding, rectal pain, vomiting, others Genitourinary: reports: others (As stated in HPI) Neurological: denies: dizziness, fainting, headache, left sided numbness, left sided weakness, numbness, paresthesia, pre-existing deficit, right sided numbness, right sided weakness, seizure, speech problems, tingling, tremors, weakness, others Musculoskeletal: denies: back pain, gout, joint pain, joint swelling, muscle pain, muscle stiffness, neck pain, others Integumetry: denies: bruises, change in color, change in hair/nails, dryness, laceration, lesions, lumps, rash, wounds, others Allergic/Immunocompromised: denies: Difficulty Healing, Frequent Infections, Hives, Itching, others Hematologic/Lymphatic: denies: anemia, blood clots, easy bleeding, easy bruising, swollen glands, others Endocrine: denies: excessive hunger, excessive sweating, excessive thirst, excessive urination, flushing, intolerance to cold, intolerance to heat, unexplained weight gain, unexplained weight loss, others Psychiatric: denies: anxiety, bipolar disorder, depression, hopeless, panic disorder, schizophrenia, sleepless, suicidal, others Physical Exam General Appearance: No Apparent Distress HEENT: PERRL/EOMI, Pharynx Normal Neck: Full Range of Motion, Non-Tender, Normal Respiratory: Chest Non-Tender, Lungs Clear, No Accessory Muscle Use, No Respiratory Distress, Normal Breath Sounds Cardiovascular: No Murmur, No Gallop, Regular Rate/Rhythm Breast Exam: Deferred Gastrointestinal: Non Tender, No Pulsatile Mass, Soft Genitalia: Other (Yellow penile discharge noted. No rash/skin changes appreciated. 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 Was a procedure done?: No Sedation Sedation?: No Differential Diagnosis Kidney stone (Female): N/A Kidney stone (Male): N/A Penile/Scrotal: Prostatitis, Phimosis, Urinary Retention Urinary Problem (Male): Epididymitis X-Ray, Labs, Meds, VS Vital Signs Date Time Temp Pulse Resp B/P (MAP) Pulse Ox O2 Delivery O2 Flow Rate FiO2 09/07/25 22:44 97.3 78 18 122/83 (96) 98 97.3 09/07/25 22:44 Room Air* 0 21 09/07/25 20:16 97.3 78 18 122/83 98 97.3 Lab Test 09/07/25 22:45 Range/Units Urine Color Colorless Yellow Urine Clarity Ex.turbid Clear Urine pH 6.0 5.0-9.0 Urine Specific [place] 1.026 1.001-1.035 Urine Protein 1+ H Negative Urine Ketones Negative Negative Urine Blood 1+ H Negative /uL Urine Nitrite Negative Negative Urine Bilirubin Negative Negative Urine Urobilinogen Normal Negative mg/dL Urine Leukocyte Esterase 3+ Negative /uL Urine RBC 44 0 - 3 /hpf Urine Microscopic WBC 1210 H 0-3 /HPF Urine Squamous Epithelial Cells None seen <5 /hpf Urine Bacteria None seen None Seen /hpf Urine Mucus Few None Seen Urine Glucose Normal Normal mg/dL Chlamydia trachomatis (IESHA) Pending Neisseria gonorrhoeae (IESHA) Pending Current Medications Medications (Trade) Dose Ordered Sig/Brenna Route Start Time Stop Time Status Last Admin Ceftriaxone Sodium (Rocephin) 1,000 mg ONCE ONCE IM 09/07/25 22:45 09/07/25 23:31 DC 09/07/25 23:23 Azithromycin (Zithromax Tablet) 1,000 mg ONCE ONCE PO 09/07/25 22:45 09/07/25 23:31 DC 09/07/25 23:18 Rocephin 1 g IM ordered Azithromycin 1 g p.o. ordered Urinalysis reviewed-urine leukocyte esterase 3+, urine blood 1+, urine nitrites negative Chlamydia/gonorrhea amplification test ordered Safe sex practices discussed and advised Patient was encouraged to have his previous sexual partners follow for STD testing/treatment Patient states he is following up with his PCP tomorrow with regards to his symptoms Patient verbalized understanding and agreeable with current plan of care Advised to return to ER immediately if symptoms worsen Time of 1ST Reevaluation: 22:34 Reevaluation 1ST: N/A Patient Education/Counseling: Diagnosis, Treatment, Prognosis, Need For Follow Up Family Education/Counseling: No Family Present SEPSIS Sepsis Screen Date sepsis recognized/suspect: Sep 07, 2025 Time Sepsis recognized/suspect: 2015 Recent Procedure: No On Antibiotic Therapy: No Respiratory Rate >20: No Heart Rate >90: No Temp<36 C (96.8 F) or >38.3 C: No SBP <90 or MAP <65 mmHG: No New Acute Mental Status Change: No Is the patient on CPAP, BIPAP,: No Physician Orders Chlamydia/Gc Amplification (09/07/25 20:54) Vital Signs Date Time Temp Pulse Resp B/P (MAP) Pulse Ox O2 Delivery O2 Flow Rate FiO2 09/07/25 22:44 97.3 78 18 122/83 (96) 98 97.3 09/07/25 22:44 Room Air* 0 21 09/07/25 20:16 97.3 78 18 122/83 98 97.3 Medications Medications Dose Ordered Sig/Brenna Route Start Time Stop Time Status Last Admin Dose Admin Azithromycin 1,000 mg ONCE ONCE PO 09/07/25 22:45 09/07/25 23:31 DC 09/07/25 23:18 Ceftriaxone Sodium 1,000 mg ONCE ONCE IM 09/07/25 22:45 09/07/25 23:31 DC 09/07/25 23:23 Departure 1 Departure Time of Disposition: 22:50 Impression: Primary Impression: STD exposure Additional Impression: UTI (urinary tract infection) Qualified Codes: N30.01 - Acute cystitis with hematuria Disposition: HOME / SELF CARE / HOMELESS Condition: Stable e-Prescriptions Doxycycline (Monohydrate) (Doxycycline) 100 Mg Cap 100 MG PO BID for 7 Days, #14 CAP 0 Refills Prov: AMBER MANDUJANO 09/07/25 Acetaminophen (Acetaminophen) 500 Mg Tab 500 MG PO Q4HPRN, #30 TAB 0 Refills Prov: AMBER MANDUJANO 09/07/25 Discharged With: Self Critical Care Note Critical Care Time?: No Stability Stability form required: No Heart Score Heart Score: Heart Score Response (Comments) Value History N/A 0 EKG N/A 0 Age N/A 0 Risk Factors N/A 0 Troponin N/A 0 Total 0 AMBER MANDUJANO Sep 07, 2025 22:55
[2025-09-07] MEDS: AZITHROMYCIN 250 MG TAB PO ONE (23:18)
[2025-09-07 23:20] LABS: Urine Protein, UAD 1+ (Negative)
[2025-09-07] MEDS: cefTRIAXone SOD 1,000 MG VL IM ONE (23:23)
[2025-09-10 06:07] LABS: Chlamydia Trachomatis, NAA Positive (Negative); Neisseria gonorrhoeae, NAA Positive (Negative)
== END 2025-09-07 23:31 | disposition home or self-care (01) ==
LOC: ER 20:14
DX: N39.0 Urinary tract infection, site not specified (principal); F17.210 Nicotine dependence, cigarettes, uncomplicated; J45.909 Unspecified asthma, uncomplicated
CPT/HCPCS: 81001; 87491; 87591; 96372; 99283; J0696